=== PATIENT | female | born 1990 | race African-American/Black ===

== ENCOUNTER 2017-06-24 09:45 | Emergency (ER) | payer SELFPAY ==
[2017-06-24 09:51] VITALS: BP 125/64
[2017-06-24] MEDS ORDERED: LIDOCAINE 2% VISCOUS SOLN 20 ML UDCUP PO ONE (10:59)
[2017-06-24] MEDS ORDERED: PENICILLIN V POTASSIUM 500 MG TABLET PO ONE (10:59)
[2017-06-24] MEDS ORDERED: HYDROCODONE/ACETAMINOPHEN 5-325 MG 6 TAB/DSPK PO PRN (10:59)
--- NOTE | 2017-06-24 11:03 | ER Document Report ---
ED Oral Problem - General Chief Complaint: Toothache Stated Complaint: TOOTHACHE Time Seen by Provider: 06/24/17 10:13 Mode of Arrival: Ambulatory Information source: Patient Notes: Dental pain to the teeth 19 and 18 with most of the tooth decayed tooth broken off just above the gumline. Redness around both teeth. She also has multiple other decayed teeth. TRAVEL OUTSIDE OF THE U[place] IN LAST 30 DAYS: No - HPI Patient complains to provider of: Toothache Onset: Other Onset: Gradual - Teeth been decayed and broken off for a long time she states the pain just started yesterday and got worse today Quality of pain: Sharp, Stabbing, Throbbing Severity: Severe Pain Level: 5 Associated symptoms: Toothache Worsened by: Cold Relieved by: Nothing Similar symptoms previously: Yes Recently seen / treated by doctor/dentist: No - Related Data Allergies/Adverse Reactions: No Known Allergies Allergy (Verified 06/24/17 09:47) Past Medical History - General Information source: Patient - Social History Smoking Status: Current Every Day Smoker Cigarette use (# per day): Yes - Cigarette a day Smoking Education Provided: Yes - In 2 minutes Frequency of alcohol use: Social Drug Abuse: None Occupation: [employer] Lives with: Alone - With daughter Family History: Hypertension, Malignancy. denies: Arthritis, CAD, COPD, CVA, DM , Hyperlipidemia, Thyroid Disfunction Patient has suicidal ideation: No Patient has homicidal ideation: No - Past Medical History Cardiac Medical History: Reports: Hx Hypertension - Pulmonary Medical History: Reports: None EENT Medical History: Reports: None Neurological Medical History: Reports: None Endocrine Medical History: Reports: None Renal/ Medical History: Reports: None Malignancy Medical History: Reports: None GI Medical History: Reports: None Musculoskeltal Medical History: Reports None Skin Medical History: Reports None Psychiatric Medical History: Reports: None Traumatic Medical History: Reports: None Infectious Medical History: Reports: None Surgical Hx: Negative Past Surgical History: Reports: None - Immunizations Hx Diphtheria, Pertussis, Tetanus Vaccination: Yes Review of Systems - Review of Systems Constitutional: No symptoms reported EENT: Mouth pain, Dental problem Cardiovascular: No symptoms reported Respiratory: No symptoms reported Gastrointestinal: No symptoms reported Genitourinary: No symptoms reported Female Genitourinary: No symptoms reported Musculoskeletal: No symptoms reported Skin: No symptoms reported Hematologic/Lymphatic: No symptoms reported Neurological/Psychological: No symptoms reported Physical Exam - Vital signs Vitals: Temp Pulse Resp BP Pulse Ox 99.2 F 103 H 16 125/64 100 06/24/17 09:51 06/24/17 09:51 06/24/17 09:51 06/24/17 09:51 06/24/17 09:51 Interpretation: Normal - General General appearance: Appears well, Alert - HEENT Head: Normocephalic, Atraumatic Eyes: Normal Pupils: PERRL Ears: Normal External canal: Normal Tympanic membrane: Normal Sinus: Normal Nasal: Normal Teeth diagram: 1 - Teeth 30 and 31 broken off most of tooth is decayed teeth. Redness around the tooth Pharynx: Normal Neck: Normal - Respiratory Respiratory status: No respiratory distress Chest status: Nontender Breath sounds: Normal Chest palpation: Normal - Cardiovascular Rhythm: Regular Heart sounds: Normal auscultation Murmur: No - Abdominal Inspection: Normal Distension: No distension Bowel sounds: Normal Tenderness: Nontender Organomegaly: No organomegaly - Back Back: Normal, Nontender - Extremities General upper extremity: Normal inspection, Nontender, Normal color, Normal ROM , Normal temperature General lower extremity: Normal inspection, Nontender, Normal color, Normal ROM , Normal temperature, Normal weight bearing. No: Matt's sign - Neurological Neuro grossly intact: Yes Cognition: Normal Orientation: AAOx4 Lyssa Coma Scale Eye Opening: Spontaneous [place] Coma Scale Verbal: Oriented [place] Coma Scale Motor: Obeys Commands Lyssa Coma Scale Total: 15 Speech: Normal Motor strength normal: LUE, RUE, LLE, RLE Sensory: Normal - Psychological Associated symptoms: Normal affect, Normal mood - Skin Skin Temperature: Warm Skin Moisture: Dry Skin Color: Normal Course - Re-evaluation Re-evalutation: 06/24/17 11:03 Patient treated with Penicillin VK viscous lidocaine oral gel and a syringe for her dental pain and a [place] dispense pack for use and at nighttime for pain until she can get into a dentist or oral surgeon. She is to contact dentistry or oral surgeon today to schedule follow-up visit. - Vital Signs Vital signs: Temp Pulse Resp BP Pulse Ox 99.2 F 103 H 16 125/64 100 06/24/17 09:51 06/24/17 09:51 06/24/17 09:51 06/24/17 09:51 06/24/17 09:51 Discharge - Discharge Clinical Impression: Pain due to dental caries Condition: Stable Disposition: HOME, SELF-CARE Additional Instructions: TOOTHACHE: Your pain is due to dental decay. The tooth must be repaired in order for you to feel better. You will, therefore, be referred to a dentist. We do not have dentists on the staff at [facility]. Severe swelling or drainage around a tooth usually means a dental abscess. This also requires evaluation and treatment by the dentist, but antibiotics may be prescribed while awaiting dental treatment. You should be rechecked immediately if you develop major swelling of the face, increasing pain, a lump in the jaw or gums, headache, difficulty swallowing, or fever. ORAL NARCOTIC MEDICATION: You have been given a [employer] dispense pack for pain control. This medication is a narcotic. It's best taken with food, as nausea can result if taken on an empty stomach. Don't operate machinery or drive within six hours of taking this medication. Do not combine this medicine with alcohol, or with any medication which can cause sedation (such as cold tablets or sleeping pills) unless you get permission from the physician. Narcotics tend to cause constipation. If possible, drink plenty of fluids and eat a diet high in fiber and fruits. Please be aware that prescription narcotics also have the potential for abuse. People become addicted to these medications because of the general sense of wellbeing that they induce. This feeling along with a significant reduction in tension, anxiety, and aggression provides a stimulating seductive quality to these drugs. Once your pain is under control, we encourage you to discard your unused narcotics. PENICILLIN V K: You have been given a prescription for Penicillin VK. Your physician has determined that this is the best antibiotic for your condition. Pen VK can be taken with meals, however more of the antibiotic gets into the bloodstream if it's taken on an empty stomach. Penicillin usually has no side effects. However, allergy to penicillins is common. If you have had an allergic reaction to any drug of the penicillin family, you should never take any other penicillin. Notify your doctor at once if you develop hives, itching, swelling, faintness, or shortness of breath. FOLLOW-UP CARE: You have been referred for follow-up care to the dentists listed below. Call the dentists office for an appointment as you were instructed or within the next two days. If you experience worsening or a significant change in your symptoms, notify the physician immediately or return to the Emergency Department at any time for re-evaluation. [facility] [address] [place], [place] mornings, by appointment [facility] [address] [place] [address] [facility] [address] [facility] [address] [facility] [address] [facility] [email or web address] [facility] [address] [place] [address] Tuesday- 8:00am to 5:00 pm Will [facility] other [facility]. Charges based on income and family size and accepts Medicare, Medicaid, and Insurances Will pull molars [facility] [id number] Hours of Operation 8:00 am - 4:30 pm weekdays The following dental offices accept Medicaid: [facility] Dr. Lloyd Dr. Capellan Dr. Romero Dr. Nesbitt Marcin Medrano, Robert, and Shayna oral surgery Dr. Lloyd ([place]) Dr. Tsai ([place]) [facility] Drs. Wood and Nilesh ([place]) Dr. Burnett ([place]) [facility] Dr. Laguna ([place]) Drs. Dubose and ([place]) Medicaid Care Line Prescriptions: Penicillin V Potassium [Penicillin Vk 500 mg Tablet] 500 mg PO BID #20 tablet Forms: Smoking Cessation Education, Return to Work Referrals: KEERTHI SANCHEZ DDS [ACTIVE STAFF] - Follow up as needed
== END 2017-06-24 11:15 | disposition home or self-care (01) ==
LOC: ER 09:45
DX: K02.9 Dental caries, unspecified (principal); F17.210 Nicotine dependence, cigarettes, uncomplicated
CPT/HCPCS: 99282; J3490

== ENCOUNTER 2018-10-26 12:27 | Emergency (ER) | payer OTHER ==
[2018-10-26 13:07] VITALS: BP 132/76
[2018-10-26] MEDS ORDERED: ACETAMINOPHEN 325 MG TABLET PO ONE (13:27)
[2018-10-26] MEDS ORDERED: LIDOCAINE 5% (700 MG) TRANSDERMAL ADH..PATCH TP ONE (13:27)
--- NOTE | 2018-10-26 13:30 | ER Document Report ---
HPI - HPI Patient complains to provider of: Right upper back pain Time Seen by Provider: 10/26/18 13:22 Onset: Other - 4 days Onset/Duration: Persistent Quality of pain: Achy Pain Level: 5 Context: Patient complains of right upper back pain for the past 4 days. Patient denies any injury. Patient is right-hand dominant. Patient complains of increased pain with lateral rotation of the head. Associated Symptoms: Other - Right upper back pain Exacerbated by: Movement Relieved by: Denies Similar symptoms previously: No Recently seen / treated by doctor: No - ROS ROS below otherwise negative: Yes Systems Reviewed and Negative: Yes All other systems reviewed and negative - CONSTITUTIONAL Constitutional: DENIES: Fever, Chills - GASTROINTESTINAL Gastrointestinal: DENIES: Nausea - REPRODUCTIVE Reproductive: DENIES: : - MUSCULOSKELETAL Musculoskeletal: REPORTS: Back Pain - DERM Skin Color: Normal Skin Problems: None Past Medical History - General Information source: Patient - Social History Smoking Status: Never Smoker Frequency of alcohol use: None Drug Abuse: None Occupation: Housekeeping Lives with: Family Family History: Hypertension, Malignancy. denies: Arthritis, CAD, COPD, CVA, DM, Hyperlipidemia, Thyroid Disfunction - Past Medical History Cardiac Medical History: Reports: Hx Hypertension - Renal/ Medical History: Denies: Hx Peritoneal Dialysis Surgical Hx: Negative - Immunizations Hx Diphtheria, Pertussis, Tetanus Vaccination: Yes Vertical Provider Document - CONSTITUTIONAL Agree With Documented VS: Yes Exam Limitations: No Limitations General Appearance: WD/WN, No Apparent Distress - INFECTION CONTROL TRAVEL OUTSIDE OF THE [place] IN LAST 30 DAYS: No - HEENT HEENT: Atraumatic, Normocephalic - NECK Neck: Other - Right trapezius muscle tenderness with spasm, no midline tenderness - RESPIRATORY Respiratory: Breath Sounds Normal, No Respiratory Distress - CARDIOVASCULAR Cardiovascular: Regular Rate, Regular Rhythm - BACK Back: Abnormal Inspection - Right trapezius muscle tenderness especially, tenderness with lateral rotation in the head - MUSCULOSKELETAL/EXTREMETIES Musculoskeletal/Extremeties: FCO WEN - NEURO Level of Consciousness: Awake, Alert, Appropriate Motor/Sensory: No Motor Deficit - DERM Integumentary: Warm, Dry, No Rash Course - Re-evaluation Re-evalutation: 10/26/18 Patient presents with right-sided trapezius muscle tenderness with spasm. Pain is reproduced with palpation, lateral rotation of the head. No meningeal irritation symptoms. No midline tenderness, no fever. - Vital Signs Vital signs: Temp Pulse Resp BP Pulse Ox 98.6 F 91 15 132/76 H 100 10/26/18 13:06 10/26/18 13:06 10/26/18 13:06 10/26/18 13:06 10/26/18 13:06 Discharge - Discharge Clinical Impression: Trapezius muscle spasm Condition: Stable Disposition: HOME, SELF-CARE Instructions: Muscle Relaxers ([facility]), Muscle Strain ([facility]), Warm Packs ([facility]) Additional Instructions: Return immediately for any new or worsening symptoms Followup with your primary care provider, call tomorrow to make a followup appointment Prescriptions: Methocarbamol [Robaxin 500 Mg Tablet] 500 mg PO QID PRN #24 tablet PRN Reason: Naproxen [Naprosyn 250 Nmg Tablet] 1 tab PO BID #14 tablet Forms: Return to Work Referrals: [facility] [Provider Group] - Follow up as needed
== END 2018-10-26 14:04 | disposition home or self-care (01) ==
LOC: ER 12:27
DX: M62.830 Muscle spasm of back (principal); M54.6 Pain in thoracic spine
CPT/HCPCS: 99283

== ENCOUNTER 2018-10-31 08:02 | Emergency (ER) | payer SELFPAY ==
[2018-10-31 08:26] VITALS: BP 119/61
[2018-10-31] MEDS ORDERED: LIDOCAINE 5% (700 MG) TRANSDERMAL ADH..PATCH TP ONE (08:45)
--- NOTE | 2018-10-31 08:46 | ER Document Report ---
ED General - General Chief Complaint: Neck and Upper Back Pain Stated Complaint: NECK/SHOULDER PAIN Time Seen by Provider: 10/31/18 08:21 Primary Care Provider: OMAYRA CHAPMAN MD [ACTIVE STAFF] - Follow up in 3-5 days (or your primary care. ) Notes: Patient is a 27-year-old female that presents to the emergency department for chief complaint of upper back pain. Patient was seen in the emergency department a few days ago for similar symptoms. She states that while she was at work, she was lifting some heavier objects, and seem to have strained her right upper back and neck. She states it is rather tender to palpate, and hurts more with turning her head from one side to the other. She denies any numbness, tingling or weakness in her upper extremities. She currently rates her pain as a 6 out of 10 describes as an aching sensation, worse with palpation. She did get relief from a Lidoderm patch when she was seen here, and does get relief with Robaxin, but it does make her drowsy. She is not aware that lidocaine patches were available [id number], and states that that seemed to help her the most. She denies having any chest pain, shortness of breath, difficulty breathing, nausea, vomiting or diarrhea. Past Medical History: Denies chronic medical conditions Past Surgical History: Denies surgical history Social History: Denies tobacco, alcohol or drug use Family History: Reviewed and noncontributory for presenting illness Allergies: Reviewed, see documented allergy list. REVIEW OF SYSTEMS: Other than noted above, the 12 point review of systems was reviewed with the patient and were negative, all pertinent findings are included in the HPI. PHYSICAL EXAMINATION: Vital signs reviewed, nursing noted reviewed. GENERAL: Well-appearing, well-nourished and in no acute distress. HEAD: Atraumatic, normocephalic. EYES: Eyes appear normal, sclera anicteric, conjunctiva are normal. ENT: Moist mucous membranes. NECK: Normal range of motion, supple without lymphadenopathy, tenderness to palpation to the trapezius muscle on the right, nontender on the left. No midline tenderness. LUNGS: Breath sounds clear to auscultation bilaterally and equal. No wheezes rales or rhonchi. HEART: Regular rate and rhythm without murmurs EXTREMITIES: Nontender, good range of motion, no pitting or edema. Back: Tenderness to palpation over the lower trapezius muscle as well in the u pper back, there is no tenderness to palpation to the midline thoracic spine, or lumbar spine, good range of motion with flexion, extension, sidebending and rotation. NEUROLOGICAL: No focal neurological deficits. Moves all extremities spontaneously Motor and sensory grossly intact on exam. Excellent strength with hip strength, flexion and extension at the elbows, and extension of the wrist, you have been seen today in the Emergency Department for your concerns. Normal upper extremity deep tendon reflexes, +2/4 bilaterally in the biceps and triceps. PSYCH: Normal mood, normal affect. SKIN: Warm, Dry, normal turgor, no rashes or lesions noted on exposed skin TRAVEL OUTSIDE OF THE [place] IN LAST 30 DAYS: No - Related Data Allergies/Adverse Reactions: No Known Allergies Allergy (Verified 10/31/18 08:12) Past Medical History - Social History Smoking Status: Never Smoker Chew tobacco use (# tins/day): No Frequency of alcohol use: None Drug Abuse: None Family History: Hypertension, Malignancy. denies: Arthritis, CAD, COPD, CVA, DM, Hyperlipidemia, Thyroid Disfunction Patient has suicidal ideation: No Patient has homicidal ideation: No - Past Medical History Cardiac Medical History: Reports: Hx Hypertension - Renal/ Medical History: Denies: Hx Peritoneal Dialysis - Immunizations Hx Diphtheria, Pertussis, Tetanus Vaccination: Yes Physical Exam - Vital signs Vitals: Temp Pulse Resp BP Pulse Ox 98.1 F 74 16 119/61 100 10/31/18 08:05 10/31/18 08:05 10/31/18 08:05 10/31/18 08:05 10/31/18 08:05 Course - Re-evaluation Re-evalutation: Patient seen and examined vital signs reviewed. Patient was evaluated and treated as appropriate for the patient's presenting symptoms and complaint, with consideration of any critical or life threatening conditions that may be associated with their obtained history and exam as noted above. Patient was treated with Lidoderm patch The patient was re-evaluated and was improved Evaluation was most consistent with upper back pain, trapezius muscle spasm, advised anti-inflammatories, topical Lidoderm patches, heat, and following up with her primary care. Plan of care was discussed with the patient at this point, after careful consideration I feel that that patient can be discharged from the emergency department, the patient was educated treatments and reasons to return to the emergency department based on their presumed diagnosis as noted above, they were advised to followup with a primary care physician in 2-3 days. Patient was agreeable to plan of care. *Note is created using voice recognition software and may contain spelling, syntax or grammatical errors. - Vital Signs Vital signs: Temp Pulse Resp BP Pulse Ox 98.1 F 74 16 119/61 100 10/31/18 08:05 10/31/18 08:05 10/31/18 08:05 10/31/18 08:05 10/31/18 08:05 Discharge - Discharge Clinical Impression: Back pain Qualifiers: Back pain location: thoracic back pain Chronicity: acute Back pain laterality: left Qualified Code(s): M54.6 - Pain in thoracic spine Condition: Stable Disposition: HOME, SELF-CARE Instructions: Upper Back Strain ([facility]) Prescriptions: Benztropine Mesylate [Cogentin 1 mg Tablet] 1 tab PO QHS #15 tab Referrals: OMAYRA CHAPMAN MD [ACTIVE STAFF] - Follow up in 3-5 days (or your primary care. )
== END 2018-10-31 09:44 | disposition home or self-care (01) ==
LOC: ER 08:02
DX: M54.6 Pain in thoracic spine (principal); M54.2 Cervicalgia
CPT/HCPCS: 99283

== ENCOUNTER 2019-04-11 08:59 | Emergency (ER) | payer SELFPAY ==
[2019-04-11 09:04] VITALS: BP 121/60
[2019-04-11] MEDS ORDERED: PENICILLIN V POTASSIUM 500 MG TABLET PO ONE (09:28)
[2019-04-11] MEDS ORDERED: HYDROCODONE/ACETAMINOPHEN 5-325 MG (6 TAB/ER DISP) PO PRN (09:28)
--- NOTE | 2019-04-11 09:30 | ER Document Report ---
HPI - HPI Time Seen by Provider: 04/11/19 09:24 Pain Level: 3 Notes: Patient is an otherwise healthy 28-year-old female presenting with left lower dental pain. Patient reports pain started 3 days ago and has worsened over the last 24 hours. She denies any fevers or drainage from the area. She has not seen a dentist for this problem. - REPRODUCTIVE Reproductive: DENIES: : Past Medical History - General Information source: Patient - Social History Smoking Status: Never Smoker Frequency of alcohol use: None Drug Abuse: None Family History: Hypertension, Malignancy. denies: Arthritis, CAD, COPD, CVA, DM, Hyperlipidemia, Thyroid Disfunction - Past Medical History Cardiac Medical History: Reports: Hx Hypertension - Renal/ Medical History: Denies: Hx Peritoneal Dialysis - Immunizations Hx Diphtheria, Pertussis, Tetanus Vaccination: Yes Vertical Provider Document - CONSTITUTIONAL Notes: PHYSICAL EXAMINATION: GENERAL: Well-appearing, well-nourished and in no acute distress. HEAD: Atraumatic, normocephalic. Mild facial swelling noted to the left lower. EYES: Pupils equal round extraocular movements intact, conjunctiva are normal. ENT: Nares patent, fractured tooth and multiple dental caries noted to left lower jawline, no drainable abscess identified. NECK: Normal range of motion LUNGS: No respiratory distress Musculoskeletal: Normal range of motion NEUROLOGICAL: Normal speech, normal gait. PSYCH: Normal mood, normal affect. SKIN: Warm, Dry, normal turgor, no rashes or lesions noted. - INFECTION CONTROL TRAVEL OUTSIDE OF THE [place] IN LAST 30 DAYS: No Course - Re-evaluation Re-evalutation: Presentation is most consistent with likely an infected tooth. Airway is patent. Vitals within normal limits. Patient is able swallow without any difficulty. There is no significant facial swelling. No evidence of Carlos angina, apical abscess, or airway obstruction. Patient will be started on antibiotics. I've instructed to follow-up with dentistry as earliest ability for definitive management. At this time will discharge with return precautions and follow-up recommendations. Verbal discharge instructions given a the bedside and opportunity for questions given. Medication warnings reviewed. Patient is in agreement with this plan and has verbalized understanding of return precautions and the need for primary care follow-up in the next 24-72 hours. - Vital Signs Vital signs: Temp Pulse Resp BP Pulse Ox 98.8 F 93 14 121/60 99 09/18/19 09:03 04/11/19 09:03 04/11/19 09:03 04/11/19 09:03 04/11/19 09:03 Discharge - Discharge Clinical Impression: Dental infection Condition: Stable Disposition: HOME, SELF-CARE Additional Instructions: You have been seen for dental pain. It is very important that you follow-up with a dentist for definitive care. Please return if you develop fever greater than 101, swelling in your face, vomiting, difficulty breathing or swallowing, or any other symptoms that are concerning to you. For pain you should take ibuprofen 800 mg every 8 hours as needed. [facility] [phone] Prescriptions: Penicillin V Potassium [Penicillin Vk 500 mg Tablet] 500 mg PO BID #20 tablet Forms: Return to Work
== END 2019-04-11 09:40 | disposition home or self-care (01) ==
LOC: ER 08:59
DX: K04.7 Periapical abscess without sinus (principal); K08.89 Other specified disorders of teeth and supporting structures; R22.0 Localized swelling, mass and lump, head; K02.9 Dental caries, unspecified
CPT/HCPCS: 99282